=== PATIENT | female | born 1970 | race Caucasian/White ===

== ENCOUNTER 2017-12-26 12:30 | Emergency (ER) | payer MEDICAID ==
[2017-12-26 13:49] VITALS: O2SAT 100
--- NOTE | 2017-12-26 14:51 | ED PDOC ---
HPI: CCC, URI, Sore Throat Time Seen by Provider: 12/26/17 13:55 Chief Complaint (Nursing): ENT Problem Chief Complaint (Provider): ENT Problem History Per: Patient History/Exam Limitations: no limitations Onset/Duration Of Symptoms: Persistent (x1 month) Current Symptoms Are (Timing): Still Present Additional Complaint(s): Patient reports 1 month onset of right-sided ear pain with possible foreign body sensation. Otherwise: (-) fever or chills, (-) dysuria or hematuria, (-) trauma or injury. Past Medical History Reviewed: Historical Data, Nursing Documentation, Vital Signs Vital Signs: Last Vital Signs Temp 98.8 F 12/26/17 13:46 Pulse 87 12/26/17 13:46 Resp 16 12/26/17 13:46 BP Pulse Ox 100 12/26/17 14:51 - Medical History PMH: No Chronic Diseases - Surgical History Surgical History: No Surg Hx - Family History Family History: States: Unknown Family Hx - Social History Current smoker - smoking cessation education provided: Yes Alcohol: None Drugs: Denies - Home Medications Home Medications: Ambulatory Orders Medication Instructions Recorded Amoxicillin [Amoxil 500 mg Cap] 500 mg PO TID #12 cap 07/24/16 Pseudoephedrine [Sudafed Tab] 30 mg PO DAILY #3 tab 07/24/16 Triamcinolone Acetonide [Nasacort 2 spray NS DAILY #1 unit 07/24/16 Allergy 24Hr] Neomycin/Polymyxin/Hydrocort 4 drop AD QID #1 bottle 12/26/17 [Cortisporin Otic Soln] - Allergies Allergies/Adverse Reactions: Allergies Allergy/AdvReac Type Severity Reaction Status Date / Time No Known Allergies Allergy Verified 07/24/16 20:21 Review of Systems ROS Statement: Except As Marked, All Systems Reviewed And Found Negative Constitutional: Negative for: Fever, Chills ENT: Positive for: Ear Pain (right). Negative for: Other (trauma or injury) Genitourinary Female: Negative for: Dysuria, Hematuria Physical Exam - Reviewed Nursing Documentation Reviewed: Yes Vital Signs Reviewed: Yes - Physical Exam Comments: GENERAL APPEARANCE: Patient is awake, alert, oriented x 3, in no acute distress. SKIN: Warm, dry; (-) cyanosis. ENMT: Canals : (-) cerumen impaction, TMs: (+) right erythema with mild edema (- ) TM bulging bilaterally, (-)effusion, (-) perforation,(-) vesicles, other ear normal. Frontal / maxillary sinuses : (-) tenderness. (-) TMJ tenderness. Pharynx: Clear; (-) erythema, (-) exudate. Airway patent: (-) stridor. NECK: (-) stiffness, (-) tenderness, (-) lymphadenopathy. LUNGS: clear, (-) wheezing, (-) rhonchi. CARDIAC: RRR, (-) murmurs, (-) gallops. - ECG O2 Sat by Pulse Oximetry: 100 (RA) Pulse Ox Interpretation: Normal Medical Decision Making Medical Decision Making: Initial Impression: Otitis externa Time: 1430 --Advised to follow up with primary care physician in 1-2 days without fail. Advised to take medication as prescribed. Return to the emergency room at any time for any new or worsening symptoms. --Patient states he/she fully agrees with and understands discharge instructions. States that he/she agrees with the plan and disposition. Verbalized and repeated discharge instructions and plan. I have given the patient opportunity to ask any additional questions. Scribe Attestation: Documented by Love Mayorga, acting as a scribe for Dayan Henning PA-C. Provider Scribe Attestation: All medical record entries made by the Scribe were at my direction and personally dictated by me. I have reviewed the chart and agree that the record accurately reflects my personal performance of the history, physical exam, medical decision making, and the department course for this patient. I have also personally directed, reviewed, and agree with the discharge instructions and disposition. Disposition - Clinical Impression Clinical Impression: Right otitis externa - Patient ED Disposition Is Patient to be Admitted: No Counseled Patient/Family Regarding: Diagnosis, Need For Followup, Rx Given - Disposition Disposition: Routine/Home Disposition Time: 14:30 Condition: STABLE Additional Instructions: Thank you for letting us take care of you today. You were treated for otitis externa. The emergency medical care you received today was directed at your acute symptoms. If you were prescribed any medication, please fill it and take as directed. It may take several days for your symptoms to resolve. Return to the Emergency Department if your symptoms worsen, do not improve, or if you have any other problems. Please contact your doctor in 2 days for re-evaluation and follow up. Bring any paperwork you were given at discharge with you along with any medications you are taking to your follow up visit. Our treatment cannot replace ongoing medical care by a primary care provider (PCP) outside of the emergency department. Thank you for allowing the [facility] team to be part of your care today. Prescriptions: Neomycin/Polymyxin/Hydrocort [Cortisporin Otic Soln] 4 drop AD QID #1 bottle Instructions: Outer Ear Infection (DC) Forms: [employer] (Nepali)
[2017-12-26 15:38] VITALS: BP 122/65; PULSE 74; RESP 14; TEMP 97.9
== END 2017-12-26 15:37 | disposition home or self-care (01) ==
LOC: H.ER 12:30
DX: H60.91 Unspecified otitis externa, right ear (principal)

== ENCOUNTER 2019-01-07 09:50 | Emergency (ER) | payer MEDICAID ==
[2019-01-07 09:57] VITALS: BMI 23.9
--- NOTE | 2019-01-07 10:21 | ED PDOC ---
HPI: Female Pain Time Seen by Provider: 01/07/19 09:53 Chief Complaint (Nursing): Female Genitourinary Chief Complaint (Provider): Lower abdominal pain with vaginal spotting History Per: Patient Onset/Duration Of Symptoms: Hrs Current Symptoms Are (Timing): Still Present Quality Of Discomfort: Sharp Associated Symptoms: Nausea, Back Pain. denies: Fever, Chills, Vomiting, Diarrhea, Urinary Symptoms Alleviating Factors: None Additional History Per: Patient Additional Complaint(s): 48 yo with history of asthma presents to the ED because of lower abdominal pain with vaginal spotting. Reports the lower abdominal started last night, is generalized both left and right of the abdomen, /, not alleviated with OTC aleve. She reports this pain has been radiating to her lower back and her legs. Associated with nausea. Denies change in vaginal discharge, dyspareunia, dysuria, frequency or urgency, vomiting, fevers, chills, sick contacts, diarrhea. Patient reports she thinks her LMP was either August or September but has been spotting since then. Is is sexually active and last reported intercourse was last week. PMD: Dr. Hatfield OB: Dr. Torres Abnormal Vaginal Bleeding: Yes Last Menstral Period: Unknown possibly August 2018 : 5 Para: 2 Miscarriage: 3 Past Medical History Reviewed: Historical Data, Nursing Documentation, Vital Signs Vital Signs: Last Vital Signs Temp 98.7 F 01/07/19 09:52 Pulse 96 H 01/07/19 09:52 Resp 16 01/07/19 09:52 BP 137/91 H 01/07/19 09:52 Pulse Ox 99 01/07/19 09:52 Primary Care Provider: Se Torres E - Medical History PMH: Asthma - Family History Family History: States: Unknown Family Hx - Home Medications Home Medications: Ambulatory Orders Medication Instructions Recorded Amoxicillin [Amoxil 500 mg Cap] 500 mg PO TID #12 cap 07/24/16 Pseudoephedrine [Sudafed Tab] 30 mg PO DAILY #3 tab 07/24/16 Triamcinolone Acetonide [Nasacort 2 spray NS DAILY #1 unit 07/24/16 Allergy 24Hr] Neomycin/Polymyxin/Hydrocort 4 drop AD QID #1 bottle 12/26/17 [Cortisporin Otic Soln] traMADol [Ultram] 50 mg PO Q8 #10 tab 01/07/19 - Allergies Allergies/Adverse Reactions: Allergies Allergy/AdvReac Type Severity Reaction Status Date / Time No Known Allergies Allergy Verified 07/24/16 20:21 Physical Exam - Reviewed Vital Signs Reviewed: Yes - Physical Exam Appears: Positive for: In Acute Distress (in pain) Head Exam: Positive for: NORMAL INSPECTION Skin: Positive for: Normal Color, Warm, Dry Eye Exam: Positive for: Normal appearance Cardiovascular/Chest: Positive for: Regular Rate, Rhythm, Other (S1 and S2 on exam ). Negative for: Edema Respiratory: Positive for: Normal Breath Sounds. Negative for: Crackles, Rales, Rhonchi, Stridor, Wheezing, Respiratory Distress Gastrointestinal/Abdominal: Positive for: Normal Exam, Bowel Sounds, Soft (generalized abdominal pain). Negative for: Distended, Rebound Neurological/Psych: Positive for: Awake, Alert - Laboratory Results Result Diagrams: 01/07/19 10:00 01/07/19 10:00 - ECG O2 Sat by Pulse Oximetry: 99 - Progress ED Course And Treament: 48 yo female with history of asthma presents today because of lower abdominal pain with vaginal spotting. Plan: -- CBC -- Toradol 30mg IVP -- B-hcg: negative -- CMP -- urinalysis -- TVUS: uterine fibroids Re-evaluation Time: 13:00 (Patient's pain is now 2/10. Pending SECURITY GUARDS DISPATCHER consult at this time.) Condition: Re-examined Disposition - Clinical Impression Clinical Impression: Uterine fibroid - Patient ED Disposition Is Patient to be Admitted: No Doctor Will See Patient In The: Office - Disposition Referrals: Se Torres MD [Staff Provider] - Disposition Time: 14:08 Condition: FAIR Prescriptions: traMADol [Ultram] 50 mg PO Q8 #10 tab Instructions: Uterine Fibroids Forms: [employer] ([place]ralt[place])
[2019-01-07 10:57] LABS: BASO # 0.1 K/uL (0.0-0.2); BASO % 0.6 % (0.0-2.0); EOS # 0.3 K/uL (0.0-0.7); HEMOGLOBIN 13.9 g/dL (12.0-16.0); LYMPH # 1.8 K/uL (1.0-4.3); LYMPH % 16.6 % (20.0-40.0); MEAN CELL VOLUME 91.7 fl (81.0-99.0); MEAN CORPUSCULAR HEMOGLOBIN 30.6 pg (27.0-31.0); MEAN CORPUSCULAR HGB CONC 33.4 g/dL (33.0-37.0); MEAN PLATELET VOLUME 8.7 fl (7.2-11.7); MONO # 0.9 K/uL (0.0-0.8); MONO % 8.6 % (0.0-10.0); NEUT # 7.5 K/uL (1.8-7.0); NEUT % 71.2 % (50.0-75.0); RBC 4.55 Mil/uL (3.80-5.20); RED CELL DISTRIBUTION WIDTH 13.3 % (11.5-14.5); WHITE BLOOD COUNT 10.6 K/uL (4.8-10.8)
[2019-01-07 11:06] LABS: URINE BILIRUBIN NEGATIVE (NEGATIVE); URINE BLOOD LARGE (NEGATIVE); URINE GLUCOSE (UA) NEG (NEGATIVE); URINE LEUKOCYTE ESTERASE TRACE Leu/uL (Negative); URINE PROTEIN 100 mg/dL (NEGATIVE); URINE UROBILINOGEN 0.2-1.0 mg/dL (0.2-1.0)
[2019-01-07 11:09] LABS: ALB/GLOB RATIO 1.3 (1.0-2.1); ALBUMIN 4.1 g/dL (3.5-5.0); ALT/SGPT 20 U/L (9-52); AST/SGOT 24 U/L (14-36); BLOOD UREA NITROGEN 10 mg/dl (7-17); CALCIUM 8.8 mg/dL (8.4-10.2); GFR NON-AFRICAN AMERICAN > 60
[2019-01-07 11:18] LABS: SQUAMOUS EPITHIAL 5 /hpf (0-5)
[2019-01-07 11:19] LABS: URINE BACTERIA FEW (<OCC)
[2019-01-07 11:20] LABS: URINE CLARITY Turbid (Clear); URINE COLOR RED (YELLOW)
--- NOTE | 2019-01-07 12:18 | US ---
Date of service: 01/07/2019 HISTORY: Pelvic pain. LMP 09/16/2018. COMPARISON: 01/08/2018. Pelvic ultrasound TECHNIQUE: Transvaginal only. Real -time technique with 2D, duplex and color Doppler FINDINGS: UTERUS: Measures 5 x 6.8 x 8.3 cm. Heterogeneous echo characteristics. 1. Posterior sub serosal fibroid 3 x 2.3 x 2.5 cm. 2. Fundal and posterior sub serosal fibroid 1.2 x 1.3 x 1.4 cm. 3. Anterior subserosal fibroid to the right of the midline 1.3 x 0.9 x 1.3 cm. ENDOMETRIUM: Measures 21.2 mm in diameter. Thickened heterogeneous endometrium without focal abnormality. CERVIX: No cervical abnormality identified. RIGHT OVARY: Measures 1.8 x 2 x 2.8 cm. No solid mass. Normal flow. Dominant cyst 1.5 x 1.9 x 2 cm. LEFT OVARY: Measures 2.1 x 1.9 x 3.3 cm. No solid mass. Normal flow. Dominant left adnexal cyst 1.2 x 1.7 x 1.4 cm FREE FLUID: Trace free fluid identified in the pelvis/cul de sac. OTHER FINDINGS: None. IMPRESSION: 1. Heterogeneous uterus, 3 uterine fibroids again identified unchanged. 2. Marked thickening of the endometrium without focal abnormality. 3. Bilateral simple adnexal cysts. Stable cyst on the right. New simple cyst on the left.
[2019-01-07 14:11] VITALS: BP 129/70; PULSE 80; RESP 17; TEMP 98; O2SAT 100
== END 2019-01-07 14:10 | disposition home or self-care (01) ==
LOC: H.ER 09:50
DX: D25.9 Leiomyoma of uterus, unspecified (principal); J45.909 Unspecified asthma, uncomplicated; R93.89 Abnormal findings on diagnostic imaging of other specified body structures
CPT/HCPCS: 76830; 80053; 81003; 81025; 84702; 85025; 96374; 99283; J1885